=== PATIENT | female | born 1985 | race Caucasian/White ===

== ENCOUNTER 2018-04-11 06:45 | Emergency (ER) | payer MEDICAID ==
[~2018-04-11] VITALS: Ht 157.5 cm; Wt 99.8 kg
[2018-04-11 06:50] VITALS: BP 128/90
--- NOTE | 2018-04-11 06:50 | NUR ---
to bed # 12 ambulatory, report given to Pool Le.
--- NOTE | 2018-04-11 07:02 | NUR ---
EKG PERFORMED AT BEDSIDE WITH FAMILY MEMBER AND TRIAGE NURSE PRESENT. PT COVERED IN GOWN DURING PROCEDURE
--- NOTE | 2018-04-11 07:16 | NUR ---
PT WOKE UP WITH CHEST PAIN THAT RADIATES TO THE BACK. PT STATES PAIN IS 10/10. PT FEELS LIKE SHE WILL FAINT. VSS. PATIENT POSITIONED FOR COMFORT; HOB ELEVATED; BEDRAILS UP X1; BED DOWN. ER MD MADE AWARE OF PT STATUS.
[2018-04-11] MEDS ORDERED: ASPIRIN 81 MG TAB.CHEW PO ONE (07:35)
[2018-04-11] MEDS ORDERED: KETOROLAC 30 MG/ML VIAL IVP ONE (07:35)
[2018-04-11] MEDS ORDERED: ALBUTEROL SULFATE/IPRATROPIU 3 ML SOL IH ONE (07:35)
--- NOTE | 2018-04-11 07:57 | NUR ---
ABG WAS ATTEMPTED WAS NOT ABLE TO GET INFORMED AND WILL TRY AGAIN LATER
[2018-04-11 07:58] LABS: BASOPHILS # (AUTO) 0.1 K/uL (0.00-0.22); BASOPHILS % (AUTO) 1.4 % (0.0-2.0); EOSINOPHILS # (AUTO) 0.4 K/uL (0-0.4); HEMATOCRIT 46.6 % (36-48); HEMOGLOBIN 15.7 g/dL (12.0-16.0); LYMPHOCYTES # (AUTO) 2.5 K/uL (2.5-16.5); LYMPHOCYTES % (AUTO) 34.6 % (20.5-51.1); MEAN CORPUSCULAR HEMOGLOBIN 31 pg (27-31); MEAN CORPUSCULAR HGB CONC 34 g/dL (33-37); MONOCYTES # (AUTO) 0.7 K/uL (0.8-1.0); MONOCYTES % (AUTO) 9.5 % (1.7-9.3); NEUTROPHILS # (AUTO) 3.6 K/uL (1.8-7.7); NEUTROPHILS % (AUTO) 49.5 % (42.2-75.2); PLATELET COUNT (AUTO) 257 K/uL (140-450); RED BLOOD CELL COUNT(AUTO) 5.01 MIL/uL (4.20-5.40); RED CELL DISTRIBUTION WIDTH 13.3 % (11.6-13.7); WHITE BLOOD COUNT (AUTO) 7.4 K/uL (4.8-10.8)
[2018-04-11 08:10] LABS: ANION GAP 13.3 (8-16); CARBON DIOXIDE 23.6 mmol/L (21-32); CREATININE 0.6 mg/dL (0.6-1.3); POTASSIUM 3.9 mmol/L (3.5-5.1)
[2018-04-11 08:16] LABS: ALBUMIN 3.3 g/dL (3.4-5.0); MAGNESIUM 1.6 mg/dL (1.8-2.4); TOTAL BILIRUBIN 0.3 mg/dL (0.0-1.0)
--- NOTE | 2018-04-11 08:56 | NUR ---
PT TAKEN TO CT VIA ANTHONY
--- NOTE | 2018-04-11 09:10 | NUR ---
PT BACK FROM CT
[2018-04-11] MEDS ORDERED: LORazepam 2 MG/ML VIAL IVP ONE (09:25)
[2018-04-11 10:09] VITALS: BP 97/54
--- NOTE | 2018-04-11 10:10 | NUR ---
Patient discharged with v/s stable. Written and verbal after care instructions given and explained. Patient alert, oriented and verbalized understanding of instructions. Ambulatory with steady gait. All questions addressed prior to discharge. ID band removed. Patient advised to follow up with PMD. Rx of VISTARIL given. Patient educated on indication of medication including possible reaction and side effects. Opportunity to ask questions provided and answered.
== END 2018-04-11 10:10 | disposition home or self-care (01) ==
LOC: MED 06:45
DX: F41.0 Panic disorder [episodic paroxysmal anxiety] (principal); E11.9 Type 2 diabetes mellitus without complications
CPT/HCPCS: 36415; 71045; 71275; 80053; 82550; 82977; 83735; 84484; 85025; 85379; 85610; 85730; 86886; 86900; 86901; 93005; 94640; 96374; 96375; 99284; J1885; J2060; J7620; Q0092; Q9967

== ENCOUNTER 2018-08-09 12:02 | Emergency (ER) | payer MEDICAID ==
[~2018-08-09] VITALS: Ht 157.5 cm; Wt 91.3 kg
[2018-08-09 12:07] VITALS: BP 147/91
[2018-08-09] MEDS ORDERED: METF1000 PO (12:11)
[2018-08-09] MEDS ORDERED: LISI5TAB18 PO (12:11)
--- NOTE | 2018-08-09 12:15 | NUR ---
Patient ambulated to bed 1 with family after providing a urine specimen. RN evaluating patient at bedside.
--- NOTE | 2018-08-09 12:16 | NUR ---
AAO X4 33 YR OLD FEMALE BIB SELF WITH C/O HEADACHE/NAUSE/VOMITING X 3 DAYS. FEVER X 2 DAYS MED HX: HTN/DM
[2018-08-09] MEDS ORDERED: NACL 0.9% 1,000 ML IV ONE (12:45)
[2018-08-09] MEDS ORDERED: METOCLOPRAMIDE 10 MG/2 ML INJ VIAL IVP ONE (12:45)
[2018-08-09] MEDS ORDERED: diphenhydrAMINE 50 MG/ML VIAL IVP ONE (12:45)
[2018-08-09] MEDS ORDERED: FLUCONAZOLE 100 MG TAB PO ONE (12:45)
[2018-08-09 13:23] LABS: BASOPHILS # (AUTO) 0.1 K/uL (0.00-0.22); BASOPHILS % (AUTO) 0.9 % (0.0-2.0); EOSINOPHILS # (AUTO) 0.2 K/uL (0-0.4); HEMATOCRIT 40.9 % (36-48); HEMOGLOBIN 14.1 g/dL (12.0-16.0); LYMPHOCYTES # (AUTO) 2.4 K/uL (2.5-16.5); LYMPHOCYTES % (AUTO) 24.1 % (20.5-51.1); MEAN CORPUSCULAR HEMOGLOBIN 32 pg (27-31); MEAN CORPUSCULAR HGB CONC 35 g/dL (33-37); MEAN CORPUSCULAR VOLUME 91.7 fL (80-94); MONOCYTES # (AUTO) 0.9 K/uL (0.8-1.0); MONOCYTES % (AUTO) 9.5 % (1.7-9.3); NEUTROPHILS # (AUTO) 6.3 K/uL (1.8-7.7); NEUTROPHILS % (AUTO) 63.5 % (42.2-75.2); PLATELET COUNT (AUTO) 288 K/uL (140-450); RED BLOOD CELL COUNT(AUTO) 4.46 MIL/uL (4.20-5.40); RED CELL DISTRIBUTION WIDTH 12.5 % (11.6-13.7); WHITE BLOOD COUNT (AUTO) 9.9 K/uL (4.8-10.8)
[2018-08-09 13:37] LABS: ANION GAP 16.6 (8-16); CARBON DIOXIDE 25.2 mmol/L (21-32); CREATININE 0.7 mg/dL (0.6-1.3); POTASSIUM 3.8 mmol/L (3.5-5.1)
[2018-08-09 13:51] LABS: ALBUMIN 2.9 g/dL (3.4-5.0); TOTAL BILIRUBIN 0.5 mg/dL (0.0-1.0)
[2018-08-09 14:16] LABS: APPEARANCE,URINE CLEAR (CLEAR); BILIRUBIN,URINE NEGATIVE (NEGATIVE); COLOR,URINE YELLOW (YELLOW); LEUKOCYTE ESTERASE ,URINE NEGATIVE (NEGATIVE); NITRITE, URINE NEGATIVE (NEGATIVE); PH,URINE 5.5 (5.0-9.0); UGLUCOSE 3+ (NEGATIVE)
[2018-08-09 14:57] LABS: BLOOD, URINE NEGATIVE (NEGATIVE)
[2018-08-09] MEDS ORDERED: KETOROLAC 15 MG/ML VIAL IVP ONE (16:05)
[2018-08-09] MEDS ORDERED: DEXAMETHASONE 10 MG/ML VIAL IVP ONE (16:05)
[2018-08-09] MEDS ORDERED: cefTRIAXone 2,000 MG in DEXTROSE 5% 100 ML IV ONE (16:10)
[2018-08-09] MEDS ORDERED: VANCOMYCIN 1,000 MG in DEXTROSE 5% 250 ML IV ONE (16:10)
--- NOTE | 2018-08-09 16:10 | NUR ---
PATIENT REFUSED G MARA/RN NOTIFIED
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
[2018-08-09] MEDS ORDERED: cefTRIAXone 2,000 MG VIAL ONE (16:28)
[2018-08-09] MEDS ORDERED: VANCOMYCIN 1,000 MG VIAL ONE (16:29)
[2018-08-09] MEDS ORDERED: MORPHINE SULFATE 4 MG/ML SYR IVP ONE (16:45)
[2018-08-09] MEDS ORDERED: ACETAMINOPHEN 650 MG/20.3 ML UDC PO ONE (16:45)
--- NOTE | 2018-08-09 20:28 | NUR ---
REPORT CALLED TO PAIGE FLORES AT [facility]. ETA 60 MINUTES.
--- NOTE | 2018-08-09 21:24 | NUR ---
PATIENT AMB TO RESTROOM.
--- NOTE | 2018-08-09 22:45 | NUR ---
PATIENT AMB TO RESTROOM.
--- NOTE | 2018-08-09 23:45 | NUR ---
PATIENT RESTING AT THIS TIME; NO SIGNS OF DISTRESS.
--- NOTE | 2018-08-10 | NUR ---
PATIENT RESTING AT THIS TIME; NO SIGNS OF DISTRESS.
[2018-08-10 00:30] VITALS: BP 123/83
--- NOTE | 2018-08-10 00:30 | NUR ---
Patient to be transferred to [facility]. Is being transferred due to CONTINUATION OF CARE. Receiving facility has accepting physician and available space. ER physician has signed transfer form. Patient or responsible republican has agreed to transfer and signed form. Patient belongings inventoried and will be sent with patient. Copy of nursing notes, lab reports, EKG, Physicians Orders and X-rays to be sent with patient. Report called to MARK GIBSON BY LOPEZ GIBSON at receiving facility. [facility] ambulance service has been called for transfer. TRANSPORT IS HERE FOR PATIENT TRANSPORT.
== END 2018-08-10 00:30 | disposition short-term general hospital (02) ==
LOC: MED 12:02
DX: A41.9 Sepsis, unspecified organism (principal); R51 Headache; E11.9 Type 2 diabetes mellitus without complications; Z79.84 Long term (current) use of oral hypoglycemic drugs; Z79.899 Other long term (current) drug therapy
CPT/HCPCS: 36415; 70450; 71046; 74177; 76705; 80053; 81003; 81025; 82948; 83605; 83690; 85025; 87040; 87081; 87804; 96365; 96366; 96368; 96375; 99285; J0696; J1100; J1200; J2270; J2765; J3370; J7030; Q0092; Q9967

== ENCOUNTER 2019-04-16 16:15 | Emergency (ER) | payer MEDICAID ==
[~2019-04-16] VITALS: Ht 157.5 cm; Wt 86.2 kg
[~2019-04-16 16:15] MED LIST: LISI5TAB18 PO; METF1000 PO
[2019-04-16 16:20] VITALS: BP 132/81
--- NOTE | 2019-04-16 17:50 | NUR ---
CALLED NAME IN LOBBY TO NO ANSWER. THE WHEELCHAIR IN LOBBY THAT PT HAD BEEN PLACED IN IS EMPTY.
--- NOTE | 2019-04-16 18:28 | NUR ---
Patient transferred to bed 9 via wheelchair by tech. RN evaluating patient at bedside.
[2019-04-16] MEDS ORDERED: IBUPROFEN 800 MG TAB PO ONE (18:35)
[2019-04-16] MEDS ORDERED: LIDOCAINE MPF 1% 10 MG/ML VIAL INJ ONE (18:35)
[2019-04-16] MEDS ORDERED: BACITRACIN OINT 500 UNITS/GM PKT TP ONE ×2 (19:01→19:05)
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
--- NOTE | 2019-04-16 19:15 | NUR ---
Transfer of care and report given to PAIGE Silveira
--- NOTE | 2019-04-16 19:18 | NUR ---
RECEIVED REPORT FROM PAIGE NICOLAS. TRANSFER OF CARE AT THIS TIME
--- NOTE | 2019-04-16 19:19 | NUR ---
Note undone in EDM - 04/16/19 at 1920 by NATALIO Patient discharged with v/s stable. Written and verbal after care instructions given and explained. Patient alert, oriented and verbalized understanding of instructions. Ambulatory with steady gait. All questions addressed prior to discharge. ID band removed. Patient advised to follow up with PMD. Rx of BACTRIM AND IBURPROFEN given. Patient educated on indication of medication including possible reaction and side effects. Opportunity to ask questions provided and answered.
--- NOTE | 2019-04-16 19:20 | NUR ---
CLEANED UP PT'S WOUND ON LEFT HEEL WITH NS THEN PLACED BACITRACIN ON WOUND THEN COVERED IT WITH NON-ADH BANDAGE, AFTER WRAP WITH WOUND WITH COBAN
[2019-04-16 19:21] VITALS: BP 132/81
== END 2019-04-16 19:21 | disposition home or self-care (01) ==
LOC: MED 16:15
DX: S91.312A Laceration without foreign body, left foot, initial encounter (principal); E11.9 Type 2 diabetes mellitus without complications; Z79.899 Other long term (current) drug therapy; W25.XXXA Contact with sharp glass, initial encounter; Y93.89 Activity, other specified; Y92.89 Other specified places as the place of occurrence of the external cause; Y99.8 Other external cause status
CPT/HCPCS: 12001; 73600; 99283; J2001; Q0092

== ENCOUNTER 2019-04-30 03:39 | Emergency (ER) | payer MEDICAID ==
[~2019-04-30] VITALS: Ht 157.5 cm; Wt 89.8 kg
[2019-04-30 03:43] VITALS: BP 112/88
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
[2019-04-30] MEDS ORDERED: BACITRACIN OINT 500 UNITS/GM PKT TP ONE (04:00)
--- NOTE | 2019-04-30 04:10 | NUR ---
WOUND CARE AND EDUCATION PROVIDED. PATIENT STATED UNDERSTANDING
--- NOTE | 2019-04-30 04:13 | NUR ---
Patient discharged with v/s stable. Written and verbal after care instructions given and explained. Patient alert, oriented and verbalized understanding of instructions. Ambulatory with steady gait. All questions addressed prior to discharge. ID band removed. Patient advised to follow up with PMD. Rx of BACITRACIN OINTMENT given. Patient educated on indication of medication including possible reaction and side effects. Opportunity to ask questions provided and answered.
[2019-04-30 04:14] VITALS: BP 112/88
== END 2019-04-30 04:13 | disposition home or self-care (01) ==
LOC: MED 03:39
DX: S91.312D Laceration without foreign body, left foot, subsequent encounter (principal); E11.9 Type 2 diabetes mellitus without complications; Z79.84 Long term (current) use of oral hypoglycemic drugs; Z98.890 Other specified postprocedural states; X58.XXXD Exposure to other specified factors, subsequent encounter
CPT/HCPCS: 99283

== ENCOUNTER 2019-05-18 01:34 | Emergency (ER) | payer MEDICAID ==
[~2019-05-18] VITALS: Ht 160 cm; Wt 90.7 kg
[2019-05-18 01:35] VITALS: BP 133/80
--- NOTE | 2019-05-18 01:35 | NUR ---
TO BED # 11 VIA WHEELCHAIR
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
[2019-05-18 01:50] VITALS: BP 133/80
[2019-05-18] MEDS ORDERED: CEPHALEXIN 500 MG CAP PO ONE (02:00)
[2019-05-18] MEDS ORDERED: IBUPROFEN 800 MG TAB PO ONE (02:00)
[2019-05-18] MEDS ORDERED: SULFAMETH/TRIMETH DS 800/160MG 1 TAB PO ONE (02:00)
--- NOTE | 2019-05-18 02:12 | NUR ---
UNABLE TO OBTAIN URINE SAMPLE. PT UNABLE TO VOID @ THIS TIME
--- NOTE | 2019-05-18 02:17 | NUR ---
PATIENT ELOPED FROM FACILITY. PT DID NOT TAKE MEDICATIONS ORDERED BY MD. DISCHARGE INSTRUCTIONS NOT GIVEN TO PATIENT. DR. VEE NOTIFIED.
== END 2019-05-18 02:15 | disposition left against medical advice (07) ==
LOC: MED 01:34
DX: R20.8 Other disturbances of skin sensation (principal); L03.312 Cellulitis of back [any part except buttock and flank]; E11.9 Type 2 diabetes mellitus without complications; Z79.84 Long term (current) use of oral hypoglycemic drugs; Z79.899 Other long term (current) drug therapy
CPT/HCPCS: 99284

== ENCOUNTER 2019-11-20 05:44 | Emergency (ER) | payer MEDICAID ==
[~2019-11-20] VITALS: Ht 165.1 cm; Wt 72.6 kg
[2019-11-20 06:00] VITALS: BP 155/79
--- NOTE | 2019-11-20 06:00 | NUR ---
PT AMBUALTED TO BED 8 WITH STEADY GAIT.
--- NOTE | 2019-11-20 06:19 | NUR ---
34 Y/O FEMALE BIB SELF FOR C/O "LICE/BED BUGS." PER PT SHE REPORTS ITCHING X 1 WEEK ON HEAD, ARMS AND PUBIC AREA. SWELLING NOTED, WARM TO TOUCH. DENIES FEVER AND CHILLS. MEDHX: DENIES NKA
[2019-11-20 06:28] VITALS: BP 155/79
--- NOTE | 2019-11-20 06:28 | NUR ---
PATIENT ELOPED FROM FACILITY. DISCHARGE INSTRUCTIONS NOT GIVEN TO PATIENT. NOTIFIED.
--- NOTE | 2019-11-20 06:28 | NUR ---
PT REFUSED TO WAIT FOR TREATMENT AND ELOPED
== END 2019-11-20 06:28 | disposition left against medical advice (07) ==
LOC: MED 05:44
DX: S00.96XA Insect bite (nonvenomous) of unspecified part of head, initial encounter (principal); S30.860A Insect bite (nonvenomous) of lower back and pelvis, initial encounter; S80.862A Insect bite (nonvenomous), left lower leg, initial encounter; S80.861A Insect bite (nonvenomous), right lower leg, initial encounter; S40.862A Insect bite (nonvenomous) of left upper arm, initial encounter; S40.861A Insect bite (nonvenomous) of right upper arm, initial encounter; L03.811 Cellulitis of head [any part, except face]; L03.114 Cellulitis of left upper limb; L03.113 Cellulitis of right upper limb; L03.116 Cellulitis of left lower limb; L03.115 Cellulitis of right lower limb; B85.2 Pediculosis, unspecified; R03.0 Elevated blood-pressure reading, without diagnosis of hypertension; E11.9 Type 2 diabetes mellitus without complications; Z79.84 Long term (current) use of oral hypoglycemic drugs; Z79.899 Other long term (current) drug therapy; W57.XXXA Bitten or stung by nonvenomous insect and other nonvenomous arthropods, initial encounter; Y93.89 Activity, other specified; Y92.89 Other specified places as the place of occurrence of the external cause; Y99.8 Other external cause status
CPT/HCPCS: 99283

== ENCOUNTER 2020-03-23 07:38 | Emergency (ER) | payer MEDICAID ==
[~2020-03-23] VITALS: Ht 157.5 cm; Wt 90.7 kg
[2020-03-23 07:43] VITALS: BP 123/63
--- NOTE | 2020-03-23 07:50 | NUR ---
wait at lobby. handed on urine cup.
--- NOTE | 2020-03-23 07:51 | NUR ---
34/f bib C/O LEGS PAIN, VAGINAL CYST, LOWER ABDOMINAL PAIN X 3 DAY. TOOK TYLENOL 3 HOURS AGO. PMH:DENIES
--- NOTE | 2020-03-23 07:57 | NUR ---
PT W/C ASSISTED TO BED 13.
[2020-03-23] MEDS ORDERED: MORPHINE SULFATE 4 MG/ML SYR IVP ONE (08:00)
[2020-03-23] MEDS ORDERED: NACL 0.9% 1,000 ML IV ONE (08:00)
--- NOTE | 2020-03-23 08:06 | NUR ---
Dr. Suh is evaluating patient at bedside.
[2020-03-23 09:52] VITALS: BP 112/67
--- NOTE | 2020-03-23 09:52 | NUR ---
Patient discharged with v/s stable. Written and verbal after care instructions given and explained. Patient alert, oriented and verbalized understanding of instructions. Ambulatory with steady gait. All questions addressed prior to discharge. ID band removed. Patient advised to follow up with PMD. Rx of KEFLEX, MOTRIN, NORCO given. Patient educated on indication of medication including possible reaction and side effects. Opportunity to ask questions provided and answered.
== END 2020-03-23 09:52 | disposition home or self-care (01) ==
LOC: MED 07:38
DX: N76.4 Abscess of vulva (principal); M79.604 Pain in right leg; M79.605 Pain in left leg; R10.9 Unspecified abdominal pain; R11.2 Nausea with vomiting, unspecified; Z79.899 Other long term (current) drug therapy
CPT/HCPCS: 96361; 96374; 99283; J2270

== ENCOUNTER 2020-10-12 02:11 | Emergency (ER) | payer MEDICAID ==
[~2020-10-12] VITALS: Ht 154.9 cm; Wt 81.6 kg
[2020-10-12 02:20] VITALS: BP 123/86
--- NOTE | 2020-10-12 02:20 | NUR ---
TO BED AMBULATORY
--- NOTE | 2020-10-12 02:50 | NUR ---
seen and examined by Evelin.
--- NOTE | 2020-10-12 03:00 | NUR ---
Female Telecommunications Professional accompanied female patient for Pelvic Exam.
[2020-10-12 03:10] VITALS: BP 123/86
--- NOTE | 2020-10-12 03:10 | NUR ---
Patient discharged with v/s stable. Verbal after care instructions given and explained. Patient verbalized understanding. Ambulatory with steady gait. All questions addressed prior to discharge. Advised to follow up with PMD. patient left with no written discharge instructions.
== END 2020-10-12 03:10 | disposition home or self-care (01) ==
LOC: MED 02:11
DX: N94.819 Vulvodynia, unspecified (principal); N76.89 Other specified inflammation of vagina and vulva
CPT/HCPCS: 99284

== ENCOUNTER 2020-11-30 16:12 | Emergency (ER) | payer MEDICAID, SELFPAY ==
--- NOTE | 2020-11-30 17:00 | NUR ---
CALLED. NO SHOW.
--- NOTE | 2020-11-30 17:26 | NUR ---
CALLEDX2. NO SHOW. Addendum: 11/30/20 at 1728 by [facility] PATIENT LEFT WITHOUT BEING TRIAGED . NO FURTHER CARE PROVIDED FOR PATIENT.
== END 2020-11-30 17:26 | disposition left against medical advice (07) ==
LOC: MED 16:12
DX: Z53.21 Procedure and treatment not carried out due to patient leaving prior to being seen by health care provider (principal)

== ENCOUNTER 2021-05-03 04:50 | Emergency (ER) | payer MEDICAID, SELFPAY ==
[~2021-05-03] VITALS: Ht 154.9 cm; Wt 90.7 kg
--- NOTE | 2021-05-03 04:54 | NUR ---
Dr. Ching examining patient.
[2021-05-03 04:55] VITALS: BP 147/104
--- NOTE | 2021-05-03 04:56 | NUR ---
PT TAKEN TO BED 8
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
--- NOTE | 2021-05-03 05:08 | NUR ---
PT TAKEN TO RADIOLOGY
--- NOTE | 2021-05-03 05:21 | NUR ---
PT RETURN FROM CT
--- NOTE | 2021-05-03 06:30 | NUR ---
PATIENT CLEARED FOR DISHCARGE AT THIS TIME. ADVISED TO FOLLOW UP WITH PCP AND RETURN IF CONDITION WORSENS. NO OTHER COMPLAINTS OR CONCERNS AT THIS TIE FOLLOWING DISCHARGE TEACHING
[2021-05-03 06:31] VITALS: BP 146/77
== END 2021-05-03 06:30 | disposition home or self-care (01) ==
LOC: MED 04:50
DX: F41.9 Anxiety disorder, unspecified (principal); R07.0 Pain in throat; E11.9 Type 2 diabetes mellitus without complications; Z79.84 Long term (current) use of oral hypoglycemic drugs; Z79.899 Other long term (current) drug therapy
CPT/HCPCS: 70360; 71045; 74018; 99284

== ENCOUNTER 2021-05-07 23:29 | Emergency (ER) | payer MEDICAID, SELFPAY ==
[~2021-05-07] VITALS: Ht 157.5 cm; Wt 99.8 kg
[2021-05-07 23:30] VITALS: BP 129/83
--- NOTE | 2021-05-07 23:30 | NUR ---
TO BED VIA W/C
[2021-05-07] MEDS ORDERED: LORazepam 2 MG/ML VIAL IVP ONE (23:45)
[2021-05-07] MEDS ORDERED: KETOROLAC 30 MG/ML VIAL IVP ONE (23:45)
[2021-05-07] MEDS ORDERED: ONDANSETRON 4 MG/2 ML VIAL IVP ONE (23:45)
[2021-05-07] MEDS ORDERED: NACL 0.9% 1,000 ML IV ONE (23:45)
--- NOTE | 2021-05-07 23:56 | NUR ---
Dr. Joseph examining patient.
--- NOTE | 2021-05-08 00:07 | NUR ---
PATIENT REFUSED MEDICATIONS AT THIS TIME, RETURNED TO [facility]
[2021-05-08 00:10] LABS: BASOPHILS # (AUTO) 0.1 K/uL (0.00-0.22); BASOPHILS % (AUTO) 1.2 % (0.0-2.0); EOSINOPHILS # (AUTO) 0.2 K/uL (0-0.4); EOSINOPHILS % (AUTO) 1.9 % (0.0-4.0); HEMOGLOBIN 13.9 g/dL (12.0-16.0); LYMPHOCYTES # (AUTO) 2.6 K/uL (2.5-16.5); LYMPHOCYTES % (AUTO) 21.4 % (20.5-51.1); MEAN CORPUSCULAR HEMOGLOBIN 32 pg (27-31); MEAN CORPUSCULAR HGB CONC 35 g/dL (33-37); MEAN CORPUSCULAR VOLUME 91.2 fL (80-94); MONOCYTES # (AUTO) 1.1 K/uL (0.8-1.0); MONOCYTES % (AUTO) 8.5 % (1.7-9.3); NEUTROPHILS # (AUTO) 8.3 K/uL (1.8-7.7); PLATELET COUNT (AUTO) 307 K/uL (140-450); RED BLOOD CELL COUNT(AUTO) 4.38 MIL/uL (4.20-5.40); RED CELL DISTRIBUTION WIDTH 12.1 % (11.6-13.7); WHITE BLOOD COUNT (AUTO) 12.4 K/uL (4.8-10.8)
--- NOTE | 2021-05-08 00:11 | NUR ---
ADVISED BY ER MD AND RN OF NEED FOR URINE. PATIENT STATES SHE DOES NOT NEED TO GO YET
--- NOTE | 2021-05-08 00:11 | NUR ---
ER SPOKE WITH PATIENT, STATE SHE WILL TAKE TORADOL
[2021-05-08 00:27] LABS: ALBUMIN 3.2 g/dL (3.4-5.0); ANION GAP 14.8 (8-16); CARBON DIOXIDE 26.3 mmol/L (21-32); CREATININE 0.7 mg/dL (0.6-1.3); POTASSIUM 4.1 mmol/L (3.5-5.1); TOTAL BILIRUBIN 0.3 mg/dL (0.0-1.0)
--- NOTE | 2021-05-08 00:30 | NUR ---
BGL 474 REPORTED TO BUD STILES
[2021-05-08] MEDS ORDERED: NACL 0.9% 1,000 ML IV ONE (01:45)
[2021-05-08] MEDS ORDERED: PHEN-1877 PO (02:12)
[2021-05-08] MEDS ORDERED: CEPH-588 PO (02:12)
[2021-05-08] MEDS ORDERED: cefTRIAXone 1,000 MG VIAL ONE (02:16)
--- NOTE | 2021-05-08 03:40 | NUR ---
PATIENT CLEARED FOR DISCHARGE AT THIS TIME. ADVISED TO FOLLOW UP WITH PCP AND RETURN IF CONDITINO WORSENS. NO OTHER COMPLAINTS OR CONCERNS FOLLOWING DISCHARGE TEACHING.
[2021-05-08 03:43] VITALS: BP 129/84
== END 2021-05-08 03:40 | disposition home or self-care (01) ==
LOC: MED 23:29
DX: N39.0 Urinary tract infection, site not specified (principal); E86.0 Dehydration; E11.65 Type 2 diabetes mellitus with hyperglycemia; Z79.899 Other long term (current) drug therapy; Z79.2 Long term (current) use of antibiotics
CPT/HCPCS: 36415; 74176; 80053; 81002; 81025; 83690; 85025; 96361; 96365; 96375; 99284; J0696; J1885; J7030; J2060; J2405

== ENCOUNTER 2021-06-12 04:10 | Emergency (ER) | payer MEDICAID, SELFPAY ==
[~2021-06-12] VITALS: Ht 154.9 cm; Wt 74.8 kg
[~2021-06-12 04:10] MED LIST changes: +CEPH-588 PO; +PHEN-1877 PO
[2021-06-12 04:18] VITALS: BP 149/82
--- NOTE | 2021-06-12 04:22 | NUR ---
36 YO/F BIB SELF W C/O R UPPER TOOTHACHE 12/30 RADIATING TO R CHEEK X APPROX 7 HOURS,+NAUSEA. PT DENIES INJURY, FEVER, CHILLS OR ANY OTHER SYMPTOMS. PT REPORTS TAKING ADVIL 400MG AT 2100 W/O RELIEF. PT LAYING IN BED LOCKED IN LOWEST POSITION. BREATHING EVEN AND UNLABORED. PMH: DENIES ALLERGIES: DENIES
--- NOTE | 2021-06-12 04:24 | NUR ---
PT AMBULATED TO BED 11
[2021-06-12] MEDS ORDERED: KETOROLAC 60 MG/2 ML VIAL IM ONE (04:30)
--- NOTE | 2021-06-12 05:14 | NUR ---
PT APPEARS TO BE RESTING W EYES CLOSED IN L LATERAL POSITION. BREATHING EVEN AND UNLABORED. WILL CONTINUE TO MONITOR.
[2021-06-12] MEDS ORDERED: NAPR-54 PO (05:28)
[2021-06-12] MEDS ORDERED: PENI500T20 PO (05:28)
[2021-06-12 05:31] VITALS: BP 149/82
--- NOTE | 2021-06-12 05:31 | NUR ---
Patient discharged with v/s stable. Written and verbal after care instructions given and explained. Patient alert, oriented and verbalized understanding of instructions. Ambulatory with steady gait. All questions addressed prior to discharge. ID band removed. Patient advised to follow up with PMD. Rx of NAPROXEN, PENICILLIN given. Patient educated on indication of medication including possible reaction and side effects. Opportunity to ask questions provided and answered. D/C COMPLETED BY INDRA ROMO.
== END 2021-06-12 05:31 | disposition home or self-care (01) ==
LOC: MED 04:10
DX: K02.9 Dental caries, unspecified (principal); E11.9 Type 2 diabetes mellitus without complications; Z79.899 Other long term (current) drug therapy
CPT/HCPCS: 81025; 96372; 99283; J1885

== ENCOUNTER 2021-07-23 05:16 | Emergency (ER) | payer MEDICAID ==
[~2021-07-23] VITALS: Ht 154.9 cm; Wt 68.0 kg
[~2021-07-23 05:16] MED LIST changes: +METF-1061 PO; -METF1000 PO; +NAPR-54 PO; +PENI500T20 PO
[2021-07-23 05:24] VITALS: BP 171/95
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
[2021-07-23] MEDS ORDERED: KETOROLAC 30 MG/ML VIAL IM ONE (05:45)
[2021-07-23] MEDS ORDERED: MORPHINE SULFATE 4 MG/ML SYR IM ONE (05:45)
[2021-07-23] MEDS ORDERED: ACET-8386 PO (05:51)
[2021-07-23] MEDS ORDERED: NAPR-54 PO (05:51)
[2021-07-23] MEDS ORDERED: AMOX500C25 PO (05:51)
--- NOTE | 2021-07-23 06:03 | NUR ---
Patient discharged without signing paperwork.
== END 2021-07-23 06:03 | disposition home or self-care (01) ==
LOC: MED 05:16
DX: K08.89 Other specified disorders of teeth and supporting structures (principal); Z79.2 Long term (current) use of antibiotics; E11.9 Type 2 diabetes mellitus without complications; Z79.1 Long term (current) use of non-steroidal anti-inflammatories (NSAID); Z79.899 Other long term (current) drug therapy
CPT/HCPCS: 96372; 99284; J1885; J2270

== ENCOUNTER 2021-10-06 06:06 | Emergency (ER) | payer MEDICAID ==
[~2021-10-06] VITALS: Ht 157.5 cm; Wt 80.7 kg
[~2021-10-06 06:06] MED LIST changes: +AMOX500C25 PO; -METF-1061 PO; +METF-1274 PO
[2021-10-06 06:21] VITALS: BP 132/79
[2021-10-06 06:33] VITALS: BP 132/79
--- NOTE | 2021-10-06 06:34 | NUR ---
36 Y/O FEMALE BIBS FROM HOME, C/O LUMP BEHIND RIGHT EAR X1 WK. PT COMPLAINS OF 9/10 CONSTANT PAIN. DENIES N/V/D, COUGH, FEVER, SOB, OR CP. OVER THE PAST FEW DAYS THE PAIN HAS WORSENED. PT HAS MUFFLED HEARING IN SAME EAR. HX: OVARIAN/CERVICAL CYST NKA NO MEDS
--- NOTE | 2021-10-06 09:59 | NUR ---
PT CALLED 3X BY INDRA, NO ANSWER IN LOBBY
--- NOTE | 2021-10-06 10:00 | NUR ---
PATIENT LEFT WITHOUT BEING SEEN BY DR. AMES. NO FURTHER CARE PROVIDED FOR PATIENT.
== END 2021-10-06 10:00 | disposition left against medical advice (07) ==
LOC: MED 06:06
DX: R51.9 Headache, unspecified (principal); Z53.21 Procedure and treatment not carried out due to patient leaving prior to being seen by health care provider

== ENCOUNTER 2021-10-11 19:40 | Emergency (ER) | payer MEDICAID ==
[~2021-10-11] VITALS: Ht 157.5 cm; Wt 79.8 kg
[2021-10-11 19:49] VITALS: BP 103/65
[2021-10-11] MEDS ORDERED: KETOROLAC 60 MG/2 ML VIAL IM ONE (20:00)
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
[2021-10-11] MEDS ORDERED: IBUPROFEN 800 MG TAB PO ONE (20:35)
--- NOTE | 2021-10-11 21:30 | NUR ---
PATIENT LEFT WITHOUT BEING SEEN BY DR. ALBRIGHT. NO FURTHER CARE PROVIDED FOR PATIENT.
== END 2021-10-11 21:04 | disposition left against medical advice (07) ==
LOC: MED 19:40
DX: R51.9 Headache, unspecified (principal); Z53.21 Procedure and treatment not carried out due to patient leaving prior to being seen by health care provider
CPT/HCPCS: J1885

== ENCOUNTER 2021-10-12 02:26 | Emergency (ER) | payer MEDICAID ==
[~2021-10-12] VITALS: Ht 157.5 cm; Wt 77.1 kg
[2021-10-12 02:33] VITALS: BP 134/68
--- NOTE | 2021-10-12 02:41 | NUR ---
TO LOBBY FOLLOWING TRIAGE
--- NOTE | 2021-10-12 04:55 | NUR ---
PATIENT LEFT WITHOUT BEING SEEN BY DR. ALBRIGHT. NO FURTHER CARE PROVIDED FOR PATIENT.
== END 2021-10-12 04:55 | disposition left against medical advice (07) ==
LOC: MED 02:26
DX: R51.9 Headache, unspecified (principal); Z53.21 Procedure and treatment not carried out due to patient leaving prior to being seen by health care provider; Y09 Assault by unspecified means; Y93.89 Activity, other specified; Y92.89 Other specified places as the place of occurrence of the external cause; Y99.8 Other external cause status

== ENCOUNTER 2021-10-17 21:37 | Emergency (ER) | payer MEDICAID ==
[~2021-10-17] VITALS: Ht 157.5 cm; Wt 77.1 kg
[2021-10-17 21:40] VITALS: BP 121/90
--- NOTE | 2021-10-17 21:45 | NUR ---
TO BED AMBULATORY
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
--- NOTE | 2021-10-17 22:20 | NUR ---
ermd at bedside
[2021-10-17] MEDS ORDERED: VANCOMYCIN 1,000 MG in DEXTROSE 5% 250 ML IV ONE (22:25)
[2021-10-17] MEDS ORDERED: NACL 0.9% 2,500 ML IV ONE (22:25)
[2021-10-17] MEDS ORDERED: KETOROLAC 30 MG/ML VIAL IVP ONE (22:25)
[2021-10-17] MEDS ORDERED: VANCOMYCIN 1,000 MG VIAL ONE (22:35)
--- NOTE | 2021-10-17 22:46 | NUR ---
pt stated she was going to give her car keys to her . its been about 15mins. i went out to lobby and parking lot called for pt 2 times, no answer. i called pt's number on file, says its not active. i called mother on file, mom states she will call her daughter and then call us back with an answer.
[2021-10-17 22:54] VITALS: BP 121/90
--- NOTE | 2021-10-17 22:54 | NUR ---
no call back from mother.
--- NOTE | 2021-10-17 22:54 | NUR ---
PATIENT ELOPED FROM FACILITY. DISCHARGE INSTRUCTIONS NOT GIVEN TO PATIENT. DR. fernandez NOTIFIED.
--- NOTE | 2021-10-17 23:05 | NUR ---
pt called back and stated she is coming back. ermd stated that is ok
--- NOTE | 2021-10-17 23:50 | NUR ---
PT NEVER RETURNED TO FACILITY. CALLED PT ON PERSONAL PHONE BUT RECEIVED PHONE DISCONNECTED MESSAGE.
== END 2021-10-17 22:54 | disposition left against medical advice (07) ==
LOC: MED 21:37
DX: L03.116 Cellulitis of left lower limb (principal); Z20.822 Contact with and (suspected) exposure to COVID-19; E11.9 Type 2 diabetes mellitus without complications; Z79.84 Long term (current) use of oral hypoglycemic drugs; Z79.899 Other long term (current) drug therapy; Z98.890 Other specified postprocedural states
CPT/HCPCS: 87426; 99283; J3370; J1885

== ENCOUNTER 2022-01-07 04:58 | Emergency (ER) | payer MEDICAID ==
[~2022-01-07] VITALS: Ht 154.9 cm; Wt 80.0 kg
[2022-01-07 05:01] VITALS: BP 126/84
--- NOTE | 2022-01-07 05:07 | NUR ---
urine collected, pt to bed 09.
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
--- NOTE | 2022-01-07 05:15 | NUR ---
Dr. Way examining patient.
[2022-01-07] MEDS ORDERED: NACL 0.9% 1,000 ML IV SCH (05:20)
[2022-01-07] MEDS ORDERED: ONDANSETRON 4 MG/2 ML VIAL IVP ONE (05:20)
[2022-01-07] MEDS ORDERED: ACETAMINOPHEN 325 MG TAB PO ONE (05:20)
[2022-01-07] MEDS ORDERED: FAMOTIDINE 20 MG/2 ML VIAL IVP ONE (05:20)
[2022-01-07 05:52] LABS: BASOPHILS # (AUTO) 0.1 K/uL (0.00-0.22); BASOPHILS % (AUTO) 1.1 % (0.0-2.0); EOSINOPHILS # (AUTO) 0.3 K/uL (0-0.4); EOSINOPHILS % (AUTO) 3.1 % (0.0-4.0); HEMATOCRIT 37.9 % (36-48); HEMOGLOBIN 13.2 g/dL (12.0-16.0); LYMPHOCYTES # (AUTO) 2.4 K/uL (2.5-16.5); LYMPHOCYTES % (AUTO) 28.2 % (20.5-51.1); MEAN CORPUSCULAR HEMOGLOBIN 32 pg (27-31); MEAN CORPUSCULAR HGB CONC 35 g/dL (33-37); MEAN CORPUSCULAR VOLUME 90.8 fL (80-94); MONOCYTES # (AUTO) 0.8 K/uL (0.8-1.0); MONOCYTES % (AUTO) 9.3 % (1.7-9.3); NEUTROPHILS % (AUTO) 58.3 % (42.2-75.2); PLATELET COUNT (AUTO) 354 K/uL (140-450); RED BLOOD CELL COUNT(AUTO) 4.17 MIL/uL (4.20-5.40); RED CELL DISTRIBUTION WIDTH 12.4 % (11.6-13.7); WHITE BLOOD COUNT (AUTO) 8.7 K/uL (4.8-10.8)
[2022-01-07 05:52] LABS: APPEARANCE,URINE CLEAR (CLEAR); BILIRUBIN,URINE NEGATIVE (NEGATIVE); BLOOD, URINE 1+ (NEGATIVE); COLOR,URINE YELLOW (YELLOW); LEUKOCYTE ESTERASE ,URINE NEGATIVE (NEGATIVE); NITRITE, URINE NEGATIVE (NEGATIVE); UGLUCOSE 3+ (NEGATIVE)
[2022-01-07 05:59] LABS: RBC,URINE 11-20 (MOD) /HPF (0-5); WBC,URINE 0-5 /HPF (0-5)
[2022-01-07 06:21] LABS: ALBUMIN 2.7 g/dL (3.4-5.0); CARBON DIOXIDE 24.9 mmol/L (21-32); CREATININE 0.7 mg/dL (0.6-1.3); POTASSIUM 3.9 mmol/L (3.5-5.1); TOTAL BILIRUBIN 0.2 mg/dL (0.0-1.0)
[2022-01-07] MEDS ORDERED: INSULIN REGULAR, HUMAN 100 UNIT/ML VIAL IVP ONE (06:35)
[2022-01-07] MEDS ORDERED: METF-1253 PO (06:55)
--- NOTE | 2022-01-07 07:00 | NUR ---
PT AMBULATED TO RESTROOM, NO DISTRESS OBSERVED.
[2022-01-07 07:08] VITALS: BP 122/67
--- NOTE | 2022-01-07 07:10 | NUR ---
Patient discharged with v/s stable. Written and verbal after care instructions given and explained. Patient alert, oriented and verbalized understanding of instructions. Ambulatory with steady gait. All questions addressed prior to discharge. ID band removed. Patient advised to follow up with PMD. Rx SENT TO PHARMACY. Patient educated on indication of medication including possible reaction and side effects. Opportunity to ask questions provided and answered.
== END 2022-01-07 07:10 | disposition home or self-care (01) ==
LOC: MED 04:58
DX: R10.13 Epigastric pain (principal)
CPT/HCPCS: 36415; 80053; 81001; 81025; 83690; 85025; 96361; 96374; 96375; 99284; J1815; J2405; J3490; J7030

== ENCOUNTER 2022-01-11 17:02 | Emergency (ER) | payer MEDICAID ==
[~2022-01-11] VITALS: Ht 157.5 cm; Wt 77.1 kg
[~2022-01-11 17:02] MED LIST changes: +METF-1253 PO
[2022-01-11 17:08] VITALS: BP 132/91
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
--- NOTE | 2022-01-11 17:56 | NUR ---
[place] [employer] AT BEDSIDE
--- NOTE | 2022-01-11 18:03 | NUR ---
REPORT #[id number]. OFFICER INO SANTANA
[2022-01-11] MEDS ORDERED: IBUPROFEN 600 MG TAB PO ONE (18:05)
[2022-01-11] MEDS ORDERED: ACETAMINOPHEN EXTRA STRENGTH 500 MG TAB PO ONE (18:05)
--- NOTE | 2022-01-11 18:10 | NUR ---
REPEAT ACCUCHECK PERFORMED AND READ TO DR BELTRAN.
[2022-01-11] MEDS ORDERED: ACET-10509 PO (18:26)
[2022-01-11] MEDS ORDERED: INSU100I7 SQ (18:26)
[2022-01-11] MEDS ORDERED: IBUP-2213 PO (18:26)
--- NOTE | 2022-01-11 18:32 | NUR ---
Patient discharged with v/s stable. Written and verbal after care instructions given and explained. Patient alert, oriented and verbalized understanding of instructions. Ambulatory with steady gait. All questions addressed prior to discharge. ID band removed. Patient advised to follow up with PMD. Rx of INSULIN given. Patient educated on indication of medication including possible reaction and side effects. Opportunity to ask questions provided and answered.
== END 2022-01-11 18:00 | disposition home or self-care (01) ==
LOC: MED 17:02
DX: S80.212A Abrasion, left knee, initial encounter (principal); S80.211A Abrasion, right knee, initial encounter; E10.65 Type 1 diabetes mellitus with hyperglycemia; Z91.14 Patient's other noncompliance with medication regimen; Z79.899 Other long term (current) drug therapy; Z79.1 Long term (current) use of non-steroidal anti-inflammatories (NSAID); Z79.2 Long term (current) use of antibiotics; Y04.8XXA Assault by other bodily force, initial encounter; Y93.89 Activity, other specified; Y92.89 Other specified places as the place of occurrence of the external cause; Y99.8 Other external cause status
CPT/HCPCS: 99283

== ENCOUNTER 2022-03-06 | Emergency (ER) | payer MEDICAID ==
[~2022-03-06] VITALS: Ht 157.5 cm; Wt 77.1 kg
[~2022-03-06] MED LIST changes: +ACET-10509 PO; +IBUP-2213 PO; +INSU100I7 SQ
[2022-03-06 00:05] VITALS: BP 146/95
[2022-03-06] MEDS ORDERED: DIAZEPAM PFS 10 MG/2 ML SYR ONE (00:10)
[2022-03-06] MEDS ORDERED: ALBUTEROL SULFATE/IPRATROPIU 3 ML SOL IH ONE (00:12)
[2022-03-06] MEDS: ALBUTEROL SULFATE/IPRATROPIU 3 ML SOL IH ONE (00:17)
[2022-03-06] MEDS: DIAZEPAM PFS 10 MG/2 ML SYR IM ONE (00:18)
[2022-03-06 00:20] VITALS: BP 127/85
== END 2022-03-06 00:20 | disposition left against medical advice (07) ==
LOC: MED
DX: F41.9 Anxiety disorder, unspecified (principal); R06.02 Shortness of breath; E11.9 Type 2 diabetes mellitus without complications; Z79.4 Long term (current) use of insulin; Z79.899 Other long term (current) drug therapy
CPT/HCPCS: 94640; 96372; 99283; J3360

== ENCOUNTER 2022-05-29 01:18 | Emergency (ER) | payer MEDICAID ==
[~2022-05-29] VITALS: Ht 157.5 cm; Wt 77.1 kg
[2022-05-29 01:27] VITALS: BP 145/92
--- NOTE | 2022-05-29 01:36 | NUR ---
PT TAKEN TO BED 12
--- NOTE | 2022-05-29 01:45 | NUR ---
s/p fall. pt denies hitting head. per pt c/o pain on neck, left arm, and left leg. numbness and tingling on leg. pt noted with weakness on left leg upon assessment. denies any past medical hx. denies any allergies.
--- NOTE | 2022-05-29 01:52 | NUR ---
C-collar placed. Dr. Abad by bedside evaluating patient.
[2022-05-29] MEDS ORDERED: KETOROLAC 30 MG/ML VIAL IM ONE (01:55)
[2022-05-29] MEDS ORDERED: diazePAM 5 MG TAB PO ONE (01:55)
--- NOTE | 2022-05-29 02:05 | NUR ---
Pt to CT
[2022-05-29] MEDS ORDERED: ACETAMINOPHEN EXTRA STRENGTH 500 MG TAB PO ONE (03:15)
--- NOTE | 2022-05-29 04:12 | NUR ---
Xray by bedside
--- NOTE | 2022-05-29 04:44 | NUR ---
Pt noted resting comfortably at this time. Per pt, pain is more manageable states 5/10 pain
[2022-05-29] MEDS ORDERED: NAPR-54 PO (06:25)
[2022-05-29] MEDS ORDERED: CYCL-711 PO (06:25)
[2022-05-29 06:33] VITALS: BP 119/68
--- NOTE | 2022-05-29 06:34 | NUR ---
Patient discharged with v/s stable. Written and verbal after care instructions given and explained. New rx flexeril and naproxen. Patient verbalized understanding. Ambulatory with steady gait. All questions addressed prior to discharge. Advised to follow up with PMD.
== END 2022-05-29 06:34 | disposition home or self-care (01) ==
LOC: MED 01:18
DX: S16.1XXA Strain of muscle, fascia and tendon at neck level, initial encounter (principal); S80.12XA Contusion of left lower leg, initial encounter; S80.212A Abrasion, left knee, initial encounter; J45.909 Unspecified asthma, uncomplicated; E11.9 Type 2 diabetes mellitus without complications; Z79.899 Other long term (current) drug therapy; Z79.1 Long term (current) use of non-steroidal anti-inflammatories (NSAID); Z79.2 Long term (current) use of antibiotics; W01.0XXA Fall on same level from slipping, tripping and stumbling without subsequent striking against object, initial encounter; Y92.89 Other specified places as the place of occurrence of the external cause; Y93.89 Activity, other specified; Y99.8 Other external cause status
CPT/HCPCS: 70450; 71045; 72125; 73590; 99285; J1885